=== PATIENT | male | born 1960 | race African-American/Black ===

== ENCOUNTER 2018-05-07 12:03 | Inpatient (IN) | payer OTHER ==
[2018-05-07 17:16] VITALS: BMI 33.3
--- NOTE | 2018-05-07 18:40 | HP ---
COWS - Scale Resting Pulse: 0= ME 80 or Below Sweatin= Chills/Flushing Restless Observation: 1= Difficult to Sit Still Pupil Size: 0= Normal to Room Light Bone or Joint Aches: 1= Mild Discomfort Runny Nose/ Eye Tearin= Runny Nose/Eyes GI Upset > 30mins: 2= Nausea/Diarrhea Tremor Observation: 1= Tremor [place], Not Seen Yawning Observation: 1= 1-2x During Session Anxiety or Irritability: 2=Irritable/Anxious Goose Flesh Skin: 0=Smooth Skin COWS Score: 11 Admission [facility] Chief Complaint: opioid withdrawal symptoms Allergies/Adverse Reactions: Allergies Allergy/AdvReac Type Severity Reaction Status Date / Time No Known Allergies Allergy Verified 05/07/18 17:30 History of Present Illness: 57 yo male wit hx of heroin, cocaine and nicotine dependence is here seeking detox. Utox positive for methadone, reports two days ago he took some from a family member to prevent getting sick. Denies suicidal / homicidal ideation or suicide attempt. PMHX: HTN, asthma, depression, insomnia. Longest period of sobriety 6 years. Last detox [facility] - 02/15/18 Exam Limitations: No Limitations - Ebola screening Have you traveled outside of the country in the last 21 days: No Have you had contact with anyone from an Ebola affected area: No Have you been sick,other than usual withdrawal symptoms: No Do you have a fever: No - Review of Systems Constitutional: Chills, Changes in sleep EENT: reports: Nose Congestion Respiratory: reports: No Symptoms reported Cardiac: reports: No Symptoms Reported GI: reports: Nausea, Poor Fluid Intake, Abdominal cramping : reports: No Symptoms Reported Musculoskeletal: reports: Back Pain, Joint Pain Integumentary: reports: No Symptoms Reported Endocrine: reports: No Symptoms Reported Hematology: reports: No Symptoms Reported Psychiatric: reports: Orientated x3, Depressed Other Systems: Reviewed and Negative Patient History - Patient Medical History Hx Anemia: No Hx Asthma: Yes (Pt is on MDI) Hx Chronic Obstructive Pulmonary Disease (COPD): No Hx Cancer: No Hx Cardiac Disorders: Yes ([place], Pt states he had a stent placed in 2015) Hx Congestive Heart Failure: No Hx Hypertension: Yes (non compliant with meds.) Hx Hypercholesterolemia: Yes Hx Pacemaker: No HX Cerebrovascular Accident: No Hx Seizures: No Hx Dementia: No Hx Diabetes: No Hx Gastrointestinal Disorders: No Hx Genitourinary Disorders: No Hx Sexually Transmitted Disorders: No Hx Renal Disease (ESRD): No Hx Thyroid Disease: No Hx Human Immunodeficiency Virus (HIV): No (last tested on year ago ) Hx Hepatitis C: No Hx Depression: Yes Hx Suicide Attempt: No Hx Bipolar Disorder: No Hx Schizophrenia: No - Patient Surgical History Past Surgical History: Yes Hx Neurologic Surgery: No Hx Cataract Extraction: No Hx Cardiac Surgery: Yes (stent in 2014) Hx Lung Surgery: No Hx Breast Surgery: No Hx Breast Biopsy: No Hx Abdominal Surgery: No Hx Appendectomy: No Hx Cholecystectomy: No Hx Genitourinary Surgery: No Hx Section: No Hx Orthopedic Surgery: No Hx Hysterectomy: No Anesthesia Reaction: No - PPD History Previous Implant?: Yes Documented Results: Negative w/proof Date: 02/21/18 PPD to be Administered?: No - Smoking Cessation Smoking history: Current every day smoker Have you smoked in the past 12 months: Yes Aproximately how many cigarettes per day: 6 Hx Chewing Tobacco Use: No Initiated information on smoking cessation: Yes 'Breaking Loose' booklet given: 05/07/18 - Substance & Tx. History Hx Alcohol Use: Yes Hx Substance Use: Yes Substance Use Type: Alcohol, Heroin Hx Substance Use Treatment: Yes (Last detox [facility] - 02/15/18) - Substances Abused Heroin Route: Inhalation Frequency: Daily Amount used: 1gm Age of first use: 18 Date of Last Use: 05/07/18 Marijuana/Hashish Route: Smoking Frequency: 1-2 times per week Amount used: 3 joints Age of first use: 18 Date of Last Use: 05/06/18 Family Disease History - Family Disease History Family Disease History: Other: Father (, unknown ), Mother (decase, Stroke ) Admission Physical Exam S - Vital Signs Vital Signs: Vital Signs - 24 hr 05/07/18 17:14 Temperature 96.6 F L Pulse Rate 60 Respiratory 20 Rate Blood Pressure 149/101 - Physical General Appearance: Yes: Disheveled, Obese, Sweating, Anxious HEENTM: Yes: EOMI, Hearing grossly Normal, Normal ENT Inspection, Normocephalic , Normal Voice, MANJINDER, Pharynx Normal, Tm's normal Respiratory: Yes: Chest Non-Tender, Lungs Clear, Normal Breath Sounds, No Respiratory Distress, No Accessory Muscle Use Neck: Yes: No masses,lesions,Nodules, Trachea in good position Breast: Yes: Breast Exam Deferred Cardiology: Yes: Regular Rhythm, Regular Rate Abdominal: Yes: Normal Bowel Sounds, Non Tender, Soft, Protuberent Genitourinary: Yes: Within Normal Limits Back: Yes: Normal Inspection Musculoskeletal: Yes: full range of Motion, Gait Steady, Pelvis Stable, Back pain Extremities: Yes: Normal Capillary Refill, Normal Inspection, Normal Range of Motion, Non-Tender Neurological: Yes: field sampling technician II-XII NML intact, Fully Oriented, Alert, Motor Strength 5/5, Depressed Affect Integumentary: Yes: Normal Color, Warm, Diaphoresis Lymphatic: Yes: Within Normal Limits - Diagnostic (1) Asthma Current Visit: Yes Status: Chronic Qualifiers: Asthma severity: unspecified severity Asthma persistence: unspecified Asthma complication type: unspecified Qualified Code(s): J45.909 - Unspecified asthma, uncomplicated (2) Back pain Current Visit: Yes Status: Acute Qualifiers: Back pain location: low back pain Chronicity: acute Back pain laterality : midline Sciatica presence: without sciatica Qualified Code(s): M54.5 - Low back pain (3) Nicotine dependence Current Visit: Yes Status: Acute Qualifiers: Nicotine product type: cigarettes Substance use status: uncomplicated Qualified Code(s): F17.210 - Nicotine dependence, cigarettes, uncomplicated (4) Opioid dependence with withdrawal Current Visit: Yes Status: Acute (5) Hypertension Current Visit: Yes Status: Chronic Qualifiers: Hypertension type: essential hypertension Qualified Code(s): I10 - Essential (primary) hypertension Comment: no medications (6) Obese Current Visit: Yes Status: Chronic Qualifiers: Obesity type: due to excess calories Obesity classification: adult class 2 (BMI 35 - 39.9) Serious obesity comorbidity presence: unspecified whether serious comorbidity present Body mass index: BMI 35.0-35.9 Qualified Code(s) : E66.09 - Other obesity due to excess calories; Z68.35 - Body mass index (BMI) 35.0-35.9, adult; Z68.35 - Body mass index (BMI) 35.0-35.9, adult Cleared for Admission S - Detox or Rehab S Level of Care: Medically Supervised Detox Regimen/Protocol: Methadone BHS Breath Alcohol Content Breath Alcohol Content: 0 Urine Drug Screen - Results Drug Screen Negative: No Urine Drug Screen Results: THC-Marijuana, OPI-Opiates, MTD-Methadone, OXY- Oxycodone
[2018-05-07] MEDS ORDERED: MAG HYDROX/AL HYDROX/SIMETH 30 ML UNIT-DOSE CUP PO PRN (18:46)
[2018-05-07] MEDS ORDERED: P-EPHED 60MG/TRIPROLIDI 2.5MG TABLET PO PRN (18:46)
[2018-05-07] MEDS ORDERED: MAGNESIUM HYDROX 2400MG/30ML ORAL SUSPENSION 30 ML CUP PO PRN (18:46)
[2018-05-07] MEDS ORDERED: LOPERAMIDE HCL 2 MG CAPSULE PO PRN (18:46)
[2018-05-07] MEDS ORDERED: IBUPROFEN 400 MG TABLET (FP) PO PRN (18:46)
[2018-05-07] MEDS ORDERED: MAGNESIUM CITRATE 300 ML BOTTLE PO PRN (18:46)
[2018-05-07] MEDS ORDERED: ACETAMINOPHEN 325 MG TABLET (FP) PO PRN (18:46)
[2018-05-07] MEDS ORDERED: MENTHOL/PHENOL 1 EACH UD MM PRN (18:46)
[2018-05-07] MEDS ORDERED: guaiFENesin/D-METHORPHAN HB 10 ML UNIT-DOSE CUPS PO PRN (18:46)
[2018-05-07] MEDS ORDERED: NICOTINE POLACRILEX 2 MG GUM BC PRN (18:46)
[2018-05-07] MEDS ORDERED: METHADONE HCL 10 MG TABLET (FOR DETOX USE ONLY) PO ONE ×2 (19:15→23:00)
[2018-05-07] MEDS: diazePAM 5 MG TABLET PO PRN (20:29)
[2018-05-07] MEDS ORDERED: cloNIDine HCL 0.1 MG TABLET PO ONE (20:45)
[2018-05-07] MEDS ORDERED: MELATONIN 5 MG TABLETS PO PRN (22:00)
[2018-05-07] MEDS: THIAMINE HCL 100 MG TABLET (FP) PO SCH (22:37)
[2018-05-07 23:23] LABS: URINE APPEARANCE TURBID; URINE BILIRUBIN NEGATIVE (<2.0 mg/dL); URINE COLOR YELLOW; URINE GLUCOSE (UA) NEGATIVE (NEGATIVE); URINE KETONE NEGATIVE (NEGATIVE); URINE LEUK ESTERASE NEGATIVE (NEGATIVE); URINE NITRITE NEGATIVE (NEGATIVE)
[2018-05-07 23:28] LABS: URINE PROTEIN 1+ (NEGATIVE)
[2018-05-07 23:33] LABS: URINE BACTERIA MANY /hpf (NONE SEEN); URINE HYALINE CAST 23 /lpf; URINE MUCUS FEW
[2018-05-08] MEDS ORDERED: CYCLOBENZAPRINE HCL 10 MG TABLET (FP) PO PRN (09:37)
[2018-05-08] MEDS ORDERED: METHADONE HCL 10 MG TABLET (FOR DETOX USE ONLY) PO ONE (10:00)
--- NOTE | 2018-05-08 10:06 | PN ---
S COWS - Scale Resting Pulse: 0= ME 80 or Below Sweatin= Chills/Flushing Restless Observation: 3= Extraneous Movement Pupil Size: 1= Pupils >than Normal Bone or Joint Aches: 2= Severe Diffuse Aches Runny Nose/ Eye Tearin= Runny Nose/Eyes GI Upset > 30mins: 2= Nausea/Diarrhea Tremor Observation of Outstretched Hands: 2= Slight Tremor Visible Yawning Observation: 1= 1-2x During Session Anxiety or Irritability: 2=Irritable/Anxious Goose Flesh Skin: 0=Smooth Skin COWS Score: 16 S Progress Note (SOAP) Subjective: alert,irritable,anxious,tremor,pain in the body and back Objective: 05/08/18 10:03 Vital Signs Temperature 97.3 F L 05/08/18 06:53 Pulse Rate 52 L 05/08/18 06:53 Respiratory Rate 18 05/08/18 06:53 Blood Pressure 171/95 05/08/18 06:53 O2 Sat by Pulse Oximetry (%) ekg nsr 72/min lvh qt 416/455 no chest pain,no sob,no dizziness Laboratory Last Values Urine Color Yellow 05/07/18 Unknown Urine Appearance Turbid 05/07/18 Unknown Urine pH 5.0 (5.0-8.0) 05/07/18 Unknown Ur Specific [place] 1.031 (1.001-1.035) 05/07/18 Unknown Urine Protein 1+ (NEGATIVE) H 05/07/18 Unknown Urine Glucose (UA) Negative (NEGATIVE) 05/07/18 Unknown Urine Ketones Negative (NEGATIVE) 05/07/18 Unknown Urine Blood Negative (NEGATIVE) 05/07/18 Unknown Urine Nitrite Negative (NEGATIVE) 05/07/18 Unknown Urine Bilirubin Negative (<2.0 mg/dL) 05/07/18 Unknown Urine Urobilinogen 2.0 mg/dL (0.2-1.0) 05/07/18 Unknown Ur Leukocyte Esterase Negative (NEGATIVE) 05/07/18 Unknown Urine WBC (Auto) 90 /hpf (3-5) 05/07/18 Unknown Urine RBC (Auto) 3 /hpf (0-3) 05/07/18 Unknown Urine Bacteria Many /hpf (NONE SEEN) 05/07/18 Unknown Hyaline Casts 23 /lpf 05/07/18 Unknown Urine Mucus Few 05/07/18 Unknown labs pending Assessment: 05/08/18 10:06 withdrawal symptom Plan: continue detox,repeat ua
[2018-05-08] MEDS: cloNIDine HCL 0.1 MG TABLET PO SCH ×2 (10:35→22:18)
[2018-05-08] MEDS: PRENATAL VITAMINS W/ FOLIC ACID TABLET (FP) PO SCH (10:35)
[2018-05-08] MEDS: HYDROCHLOROTHIAZIDE 25 MG TABLET (FP) PO SCH (10:35)
[2018-05-08] MEDS: NICOTINE 14 MG/24 HOURS TOPICAL PATCH TD SCH (10:35)
--- NOTE | 2018-05-08 13:12 | EKG ---
Test Reason : Blood Pressure : / mmHG Vent. Rate : 072 BPM Atrial Rate : 072 BPM P-R Int : 126 ms QRS Dur : 092 ms QT Int : 416 ms P-R-T Axes : 052 -13 044 degrees QTc Int : 455 ms SINUS RHYTHM WITH PREMATURE ATRIAL COMPLEXES MODERATE VOLTAGE CRITERIA FOR LVH, MAY BE NORMAL VARIANT BORDERLINE ECG Confirmed by MD BROOKE, CELESTINA ([id number]) on 05/08/2018 1:12:28 PM Referred By: Confirmed By:CELESTINA COX MD
--- NOTE | 2018-05-08 13:24 | CONSULT ---
[facility] Psychiatric Consult - Data Date of interview: 05/08/18 Admission source: [facility] Identifying data: Another admission to [facility] for this 57 y/o AA male seeking detox on for heroin,marihuana,alcohol and cocaine dependence.Patient is ,a father of three,domiciled,unemployed and supported on SSI benefits. Substance Abuse History: Confirmed by patient in this session.Smoking history: Current every day smoker. Have you smoked in the past 12 months: Yes. Aproximately how many cigarettes per day: 6. Hx Chewing Tobacco Use: No. Initiated information on smoking cessation: Yes. 'Breaking Loose' booklet given : 05/07/18. - Substance & Tx. History. Hx Alcohol Use: Yes. Hx Substance Use : Yes. Substance Use Type: Alcohol, Heroin. Hx Substance Use Treatment: Yes ( Last detox [facility] - 02/15/18). - Substances Abused. Heroin. Route: Inhalation. Frequency: Daily. Amount used: 1gm. Age of first use: 18. Date of Last Use: 05/07/18. Marijuana/Hashish. Route: Smoking. Frequency: 1-2 times per week. Amount used: 3 joints. Age of first use: 18. Date of Last Use : 05/06/18 Medical History: Hypertension,bronchial asthma and a history of myocardial infarction (stent placement in 2014). Psychiatric History: No history. Physical/Sexual Abuse/Trauma History: Patient denies. Additional Comment: Urine Drug Screen Results: THC-Marijuana, OPI-Opiates, MTD- Methadone, OXY-Oxycodone.Noted. Mental Status Exam - Mental Status Exam Alert and Oriented to: Time, Place, Person Cognitive Function: Good Patient Appearance: Well Groomed Mood: Withdrawn, Hopeful Affect: Appropriate, Normal Range Patient Behavior: Fatigued, Cooperative Speech Pattern: Clear, Appropriate Voice Loudness: Normal Thought Process: Intact, Goal Oriented Thought Disorder: Not Present Hallucinations: Denies Suicidal Ideation: Denies Homicidal Ideation: Denies Insight/Judgement: Poor Sleep: Poorly, Difficulty falling asleep Appetite: Good Muscle strength/Tone: Normal Gait/Station: Normal Psychiatric Findings - Problem List ([place] 1, 2,3) (1) Opioid dependence with withdrawal Current Visit: Yes Status: Acute (2) Cocaine dependence Current Visit: Yes Status: Acute Qualifiers: Substance use status: uncomplicated Qualified Code(s): F14.20 - Cocaine dependence, uncomplicated (3) Marijuana abuse Current Visit: Yes Status: Acute (4) Nicotine dependence Current Visit: Yes Status: Acute Qualifiers: Nicotine product type: cigarettes Substance use status: uncomplicated Qualified Code(s): F17.210 - Nicotine dependence, cigarettes, uncomplicated (5) Insomnia Current Visit: Yes Status: Acute Qualifiers: Insomnia type: unspecified Qualified Code(s): G47.00 - Insomnia, unspecified - Initial Treatment Plan Initial Treatment Plan: Psychoeducation.Detoxification.Sleep hygiene discussed.Ambien 5 mg po hs prn.Patient is made aware of the potential for parasomnias.Agrees with this careplan.Observation.
[2018-05-08 14:56] LABS: HEMATOCRIT 39.1 % (35.4-49); HEMOGLOBIN 12.8 GM/dL (11.7-16.9); MCH 28.7 pg (25.7-33.7); MCHC 32.8 g/dl (32.0-35.9); MEAN CELL VOLUME 87.5 fl (80-96); MEAN PLT VOLUME 9.9 fl (7.5-11.1); PLATELET COUNT 229 K/MM3 (134-434); RBC 4.47 M/mm3 (4.00-5.60); RDW 15.2 % (11.9-15.9); WHITE BLOOD COUNT 6.8 K/mm3 (4.0-10.0)
[2018-05-08 15:04] LABS: CHLORIDE 105 mmol/L (98-107); POTASSIUM 3.8 mmol/L (3.5-5.1); SODIUM 142 mmol/L (136-145)
[2018-05-08 15:22] LABS: ALBUMIN 3.2 g/dl (3.4-5.0); ALK PHOS 77 U/L (45-117); ANION GAP 10 (8-16); BILIRUBIN,TOTAL 0.3 mg/dL (0.2-1.0); BLOOD UREA NITROGEN 24 mg/dL (7-18); CALCIUM 8.8 mg/dL (8.5-10.1); CO2 27 mmol/L (21-32); CREATININE 1.3 mg/dL (0.7-1.3); GLUCOSE,RANDOM 149 mg/dL (74-106); SGOT/AST 13 U/L (15-37); SGPT/ALT 16 U/L (12-78); TOT PROT 6.7 g/dl (6.4-8.2)
[2018-05-08] MEDS: THIAMINE HCL 100 MG TABLET (FP) PO SCH (22:17)
[2018-05-08] MEDS: diazePAM 5 MG TABLET PO PRN (22:18)
[2018-05-09 09:38] LABS: URINE APPEARANCE CLEAR; URINE BILIRUBIN NEGATIVE (<2.0 mg/dL); URINE COLOR LTYELLOW; URINE GLUCOSE (UA) NEGATIVE (NEGATIVE); URINE KETONE NEGATIVE (NEGATIVE); URINE LEUK ESTERASE NEGATIVE (NEGATIVE); URINE NITRITE NEGATIVE (NEGATIVE); URINE PROTEIN NEGATIVE (NEGATIVE); URINE UROBILINOGEN NEGATIVE mg/dL (0.2-1.0)
[2018-05-09] MEDS ORDERED: METHADONE HCL 5 MG TABLET (FOR DETOX USE ONLY) PO ONE (10:00)
--- NOTE | 2018-05-09 10:06 | PN ---
BHS COWS - Scale Resting Pulse: 0= IN 80 or Below Sweatin= Chills/Flushing Restless Observation: 1= Difficult to Sit Still Pupil Size: 1= Pupils >than Normal Bone or Joint Aches: 2= Severe Diffuse Aches Runny Nose/ Eye Tearin= Runny Nose/Eyes GI Upset > 30mins: 1= Stomach Cramp Tremor Observation of Outstretched Hands: 2= Slight Tremor Visible Yawning Observation: 2= >3x During Session Anxiety or Irritability: 2=Irritable/Anxious Goose Flesh Skin: 0=Smooth Skin COWS Score: 14 BHS Progress Note (SOAP) Subjective: joint pain body ache sweat tremor restlessness anxiety irritable trouble sleep at night Objective: 05/09/18 10:03 Vital Signs Temperature 98.2 F 05/09/18 09:42 Pulse Rate 78 05/09/18 09:42 Respiratory Rate 18 05/09/18 09:42 Blood Pressure 162/92 05/09/18 09:42 O2 Sat by Pulse Oximetry (%) Laboratory Last Values WBC 6.8 K/mm3 (4.0-10.0) 05/08/18 10:10 RBC 4.47 M/mm3 (4.00-5.60) 05/08/18 10:10 Hgb 12.8 GM/dL (11.7-16.9) 05/08/18 10:10 Hct 39.1 % (35.4-49) 05/08/18 10:10 MCV 87.5 fl (80-96) 05/08/18 10:10 MCH 28.7 pg (25.7-33.7) 05/08/18 10:10 MCHC 32.8 g/dl (32.0-35.9) 05/08/18 10:10 RDW 15.2 % (11.9-15.9) 05/08/18 10:10 Plt Count 229 K/MM3 (134-434) D 05/08/18 10:10 MPV 9.9 fl (7.5-11.1) 05/08/18 10:10 Sodium 142 mmol/L (136-145) 05/08/18 10:10 Potassium 3.8 mmol/L (3.5-5.1) 05/08/18 10:10 Chloride 105 mmol/L (98-107) 05/08/18 10:10 Carbon Dioxide 27 mmol/L (21-32) 05/08/18 10:10 Anion Gap 10 (8-16) 05/08/18 10:10 BUN 24 mg/dL (7-18) H 05/08/18 10:10 Creatinine 1.3 mg/dL (0.7-1.3) 05/08/18 10:10 Creat Clearance w eGFR 56.50 (>60) 05/08/18 10:10 Random Glucose 149 mg/dL (74-106) H D 05/08/18 10:10 Calcium 8.8 mg/dL (8.5-10.1) 05/08/18 10:10 Total Bilirubin 0.3 mg/dL (0.2-1.0) 05/08/18 10:10 AST 13 U/L (15-37) L D 05/08/18 10:10 ALT 16 U/L (12-78) D 05/08/18 10:10 Alkaline Phosphatase 77 U/L (45-117) 05/08/18 10:10 Total Protein 6.7 g/dl (6.4-8.2) 05/08/18 10:10 Albumin 3.2 g/dl (3.4-5.0) L 05/08/18 10:10 Urine Color Ltyellow 05/09/18 08:00 Urine Appearance Clear 05/09/18 08:00 Urine pH 6.0 (5.0-8.0) 05/09/18 08:00 Ur Specific [place] 1.017 (1.001-1.035) 05/09/18 08:00 Urine Protein Negative (NEGATIVE) 05/09/18 08:00 Urine Glucose (UA) Negative (NEGATIVE) 05/09/18 08:00 Urine Ketones Negative (NEGATIVE) 05/09/18 08:00 Urine Blood Negative (NEGATIVE) 05/09/18 08:00 Urine Nitrite Negative (NEGATIVE) 05/09/18 08:00 Urine Bilirubin Negative (<2.0 mg/dL) 05/09/18 08:00 Urine Urobilinogen Negative mg/dL (0.2-1.0) 05/09/18 08:00 Ur Leukocyte Esterase Negative (NEGATIVE) 05/09/18 08:00 Urine WBC (Auto) 90 /hpf (3-5) 05/07/18 Unknown Urine RBC (Auto) 3 /hpf (0-3) 05/07/18 Unknown Urine Bacteria Many /hpf (NONE SEEN) 05/07/18 Unknown Hyaline Casts 23 /lpf 05/07/18 Unknown Urine Mucus Few 05/07/18 Unknown lab noted increase oral fluid Assessment: 05/09/18 10:05 withdrawal sx Plan: continue detox increase oral fluid
[2018-05-09] MEDS: cloNIDine HCL 0.1 MG TABLET PO SCH ×2 (10:13→22:27)
[2018-05-09] MEDS: HYDROCHLOROTHIAZIDE 25 MG TABLET (FP) PO SCH (10:13)
[2018-05-09] MEDS: PRENATAL VITAMINS W/ FOLIC ACID TABLET (FP) PO SCH (10:14)
[2018-05-09] MEDS: NICOTINE 14 MG/24 HOURS TOPICAL PATCH TD SCH (10:14)
[2018-05-09] MEDS: amLODIPine BESYLATE 10 MG TABLET (FP) PO SCH (10:15)
[2018-05-09] MEDS: diazePAM 5 MG TABLET PO PRN (22:27)
[2018-05-09] MEDS: THIAMINE HCL 100 MG TABLET (FP) PO SCH (22:27)
--- NOTE | 2018-05-10 09:45 | PN ---
S Progress Note (SOAP) Subjective: body ache sweat tremor gi distress Objective: 05/10/18 09:44 Vital Signs Temperature 97.7 F 05/10/18 09:16 Pulse Rate 62 05/10/18 09:16 Respiratory Rate 18 05/10/18 09:16 Blood Pressure 137/73 05/10/18 09:16 O2 Sat by Pulse Oximetry (%) Laboratory Last Values WBC 6.8 K/mm3 (4.0-10.0) 05/08/18 10:10 RBC 4.47 M/mm3 (4.00-5.60) 05/08/18 10:10 Hgb 12.8 GM/dL (11.7-16.9) 05/08/18 10:10 Hct 39.1 % (35.4-49) 05/08/18 10:10 MCV 87.5 fl (80-96) 05/08/18 10:10 MCH 28.7 pg (25.7-33.7) 05/08/18 10:10 MCHC 32.8 g/dl (32.0-35.9) 05/08/18 10:10 RDW 15.2 % (11.9-15.9) 05/08/18 10:10 Plt Count 229 K/MM3 (134-434) D 05/08/18 10:10 MPV 9.9 fl (7.5-11.1) 05/08/18 10:10 Sodium 142 mmol/L (136-145) 05/08/18 10:10 Potassium 3.8 mmol/L (3.5-5.1) 05/08/18 10:10 Chloride 105 mmol/L (98-107) 05/08/18 10:10 Carbon Dioxide 27 mmol/L (21-32) 05/08/18 10:10 Anion Gap 10 (8-16) 05/08/18 10:10 BUN 24 mg/dL (7-18) H 05/08/18 10:10 Creatinine 1.3 mg/dL (0.7-1.3) 05/08/18 10:10 Creat Clearance w eGFR 56.50 (>60) 05/08/18 10:10 Random Glucose 149 mg/dL (74-106) H D 05/08/18 10:10 Calcium 8.8 mg/dL (8.5-10.1) 05/08/18 10:10 Total Bilirubin 0.3 mg/dL (0.2-1.0) 05/08/18 10:10 AST 13 U/L (15-37) L D 05/08/18 10:10 ALT 16 U/L (12-78) D 05/08/18 10:10 Alkaline Phosphatase 77 U/L (45-117) 05/08/18 10:10 Total Protein 6.7 g/dl (6.4-8.2) 05/08/18 10:10 Albumin 3.2 g/dl (3.4-5.0) L 05/08/18 10:10 Urine Color Ltyellow 05/09/18 08:00 Urine Appearance Clear 05/09/18 08:00 Urine pH 6.0 (5.0-8.0) 05/09/18 08:00 Ur Specific [place] 1.017 (1.001-1.035) 05/09/18 08:00 Urine Protein Negative (NEGATIVE) 05/09/18 08:00 Urine Glucose (UA) Negative (NEGATIVE) 05/09/18 08:00 Urine Ketones Negative (NEGATIVE) 05/09/18 08:00 Urine Blood Negative (NEGATIVE) 05/09/18 08:00 Urine Nitrite Negative (NEGATIVE) 05/09/18 08:00 Urine Bilirubin Negative (<2.0 mg/dL) 05/09/18 08:00 Urine Urobilinogen Negative mg/dL (0.2-1.0) 05/09/18 08:00 Ur Leukocyte Esterase Negative (NEGATIVE) 05/09/18 08:00 Urine WBC (Auto) 90 /hpf (3-5) 05/07/18 Unknown Urine RBC (Auto) 3 /hpf (0-3) 05/07/18 Unknown Urine Bacteria Many /hpf (NONE SEEN) 05/07/18 Unknown Hyaline Casts 23 /lpf 05/07/18 Unknown Urine Mucus Few 05/07/18 Unknown RPR Titer Nonreactive (NONREACTIVE) 05/08/18 10:10 lab noted Assessment: 05/10/18 09:45 withdrawal sx Plan: continue detox
[2018-05-10] MEDS ORDERED: METHADONE HCL 5 MG TABLET (FOR DETOX USE ONLY) PO ONE (10:00)
[2018-05-10] MEDS: cloNIDine HCL 0.1 MG TABLET PO SCH ×2 (10:34→22:23)
[2018-05-10] MEDS: RANITIDINE HCL 150 MG TABLET (FP) PO SCH ×2 (10:34→22:23)
[2018-05-10] MEDS: PRENATAL VITAMINS W/ FOLIC ACID TABLET (FP) PO SCH (10:34)
[2018-05-10] MEDS: amLODIPine BESYLATE 10 MG TABLET (FP) PO SCH (10:34)
[2018-05-10] MEDS: NICOTINE 14 MG/24 HOURS TOPICAL PATCH TD SCH (10:35)
[2018-05-10] MEDS: diazePAM 5 MG TABLET PO PRN (10:35)
[2018-05-10] MEDS: LISINOPRIL 10 MG TABLET (FP) PO SCH ×2 (10:35→22:23)
[2018-05-10] MEDS: HYDROCHLOROTHIAZIDE 25 MG TABLET (FP) PO SCH (10:35)
[2018-05-10] MEDS: THIAMINE HCL 100 MG TABLET (FP) PO SCH (22:23)
--- NOTE | 2018-05-11 09:33 | PN ---
S Progress Note (SOAP) Subjective: alert,interrupted sleep, Objective: 05/11/18 09:32 Vital Signs Temperature 97.5 F L 05/11/18 05:59 Pulse Rate 55 L 05/11/18 05:59 Respiratory Rate 18 05/11/18 05:59 Blood Pressure 132/78 05/11/18 05:59 O2 Sat by Pulse Oximetry (%) Assessment: 05/11/18 09:32 withdrawal symptom Plan: continue detox,discharge in am
[2018-05-11] MEDS ORDERED: METHADONE HCL 10 MG TABLET (FOR DETOX USE ONLY) PO ONE (10:00)
[2018-05-11] MEDS: HYDROCHLOROTHIAZIDE 25 MG TABLET (FP) PO SCH (10:15)
[2018-05-11] MEDS: RANITIDINE HCL 150 MG TABLET (FP) PO SCH ×2 (10:15→22:08)
[2018-05-11] MEDS: PRENATAL VITAMINS W/ FOLIC ACID TABLET (FP) PO SCH (10:15)
[2018-05-11] MEDS: cloNIDine HCL 0.1 MG TABLET PO SCH ×2 (10:15→22:08)
[2018-05-11] MEDS: LISINOPRIL 10 MG TABLET (FP) PO SCH ×2 (10:15→22:08)
[2018-05-11] MEDS: NICOTINE 14 MG/24 HOURS TOPICAL PATCH TD SCH (10:16)
[2018-05-11] MEDS: amLODIPine BESYLATE 10 MG TABLET (FP) PO SCH (10:16)
[2018-05-11] MEDS: THIAMINE HCL 100 MG TABLET (FP) PO SCH (22:08)
[2018-05-12] MEDS ORDERED: METHADONE HCL 5 MG TABLET (FOR DETOX USE ONLY) PO ONE (06:00)
--- NOTE | 2018-05-12 08:33 | PN ---
S Progress Note (SOAP) Subjective: ALERT,NO COMPLAINT Objective: 05/12/18 08:31 Vital Signs Temperature 96.4 F L 05/12/18 06:20 Pulse Rate 71 05/12/18 06:20 Respiratory Rate 18 05/12/18 06:20 Blood Pressure 117/66 05/12/18 06:20 O2 Sat by Pulse Oximetry (%) Assessment: 05/12/18 08:32 DETOX COMPLETED,NO WITHDRAWAL SYMPTOM Plan: DISCHARGE TODAY,FOLLOW UP WITH AFTER CARE PROGRAM ARRANGEMENT
--- NOTE | 2018-05-12 08:39 | DS ---
[facility] Detox Discharge Summary Admission Date: 05/07/18 Discharge Date: 05/12/18 - History Present History: Opioid Dependence Additional Comments: FOLLOW UP WITH AFTER CARE PROGRAM ARRANGEMENT,ADVISE DIET LOW SALT AND NO CONCENTRATED SWEET,FOLLOW UP WITH PCP FOR MEDICAL PROBLEM Pertinent Past History: ESSENTIAL HYPERTENSION ASTHMA BACK PAIN NICOTINE DEPENDENCE - Physical Exam Results Vital Signs: Vital Signs Temperature 96.4 F L 05/12/18 06:20 Pulse Rate 71 05/12/18 06:20 Respiratory Rate 18 05/12/18 06:20 Blood Pressure 117/66 05/12/18 06:20 O2 Sat by Pulse Oximetry (%) Pertinent Admission Physical Exam Findings: WITHDRAWAL SIGNS AND SYMPTOM Laboratory Last Values WBC 6.8 K/mm3 (4.0-10.0) 05/08/18 10:10 RBC 4.47 M/mm3 (4.00-5.60) 05/08/18 10:10 Hgb 12.8 GM/dL (11.7-16.9) 05/08/18 10:10 Hct 39.1 % (35.4-49) 05/08/18 10:10 MCV 87.5 fl (80-96) 05/08/18 10:10 MCH 28.7 pg (25.7-33.7) 05/08/18 10:10 MCHC 32.8 g/dl (32.0-35.9) 05/08/18 10:10 RDW 15.2 % (11.9-15.9) 05/08/18 10:10 Plt Count 229 K/MM3 (134-434) D 05/08/18 10:10 MPV 9.9 fl (7.5-11.1) 05/08/18 10:10 Sodium 142 mmol/L (136-145) 05/08/18 10:10 Potassium 3.8 mmol/L (3.5-5.1) 05/08/18 10:10 Chloride 105 mmol/L (98-107) 05/08/18 10:10 Carbon Dioxide 27 mmol/L (21-32) 05/08/18 10:10 Anion Gap 10 (8-16) 05/08/18 10:10 BUN 24 mg/dL (7-18) H 05/08/18 10:10 Creatinine 1.3 mg/dL (0.7-1.3) 05/08/18 10:10 Creat Clearance w eGFR 56.50 (>60) 05/08/18 10:10 Random Glucose 149 mg/dL (74-106) H D 05/08/18 10:10 Calcium 8.8 mg/dL (8.5-10.1) 05/08/18 10:10 Total Bilirubin 0.3 mg/dL (0.2-1.0) 05/08/18 10:10 AST 13 U/L (15-37) L D 05/08/18 10:10 ALT 16 U/L (12-78) D 05/08/18 10:10 Alkaline Phosphatase 77 U/L (45-117) 05/08/18 10:10 Total Protein 6.7 g/dl (6.4-8.2) 05/08/18 10:10 Albumin 3.2 g/dl (3.4-5.0) L 05/08/18 10:10 Urine Color Ltyellow 05/09/18 08:00 Urine Appearance Clear 05/09/18 08:00 Urine pH 6.0 (5.0-8.0) 05/09/18 08:00 Ur Specific [place] 1.017 (1.001-1.035) 05/09/18 08:00 Urine Protein Negative (NEGATIVE) 05/09/18 08:00 Urine Glucose (UA) Negative (NEGATIVE) 05/09/18 08:00 Urine Ketones Negative (NEGATIVE) 05/09/18 08:00 Urine Blood Negative (NEGATIVE) 05/09/18 08:00 Urine Nitrite Negative (NEGATIVE) 05/09/18 08:00 Urine Bilirubin Negative (<2.0 mg/dL) 05/09/18 08:00 Urine Urobilinogen Negative mg/dL (0.2-1.0) 05/09/18 08:00 Ur Leukocyte Esterase Negative (NEGATIVE) 05/09/18 08:00 Urine WBC (Auto) 90 /hpf (3-5) 05/07/18 Unknown Urine RBC (Auto) 3 /hpf (0-3) 05/07/18 Unknown Urine Bacteria Many /hpf (NONE SEEN) 05/07/18 Unknown Hyaline Casts 23 /lpf 05/07/18 Unknown Urine Mucus Few 05/07/18 Unknown RPR Titer Nonreactive (NONREACTIVE) 07/03/18 10:10 Vital Signs Temperature 96.4 F L 05/12/18 06:20 Pulse Rate 71 05/12/18 06:20 Respiratory Rate 18 05/12/18 06:20 Blood Pressure 117/66 05/12/18 06:20 O2 Sat by Pulse Oximetry (%) - Treatment Hospital Course: Detox Protocol Followed, Detoxed Safely, Responded well, Discharged Condition Good, Rehab Referral Accepted Patient has Accepted a Rehab Referral to: [facility] - Medication Discharge Medications: Ambulatory Orders Amlodipine Besylate [Norvasc -] 10 mg PO DAILY #30 tablet 05/11/18 Hydrochlorothiazide [Hctz -] 25 mg PO DAILY #30 tablet 05/11/18 Lisinopril [Prinivil] 10 mg PO BID #60 tablet 05/11/18 Ranitidine [Zantac -] 150 mg PO BID #20 tablet 05/11/18 Ranitidine [Zantac -] 150 mg PO BID #20 tablet 05/11/18 - Diagnosis (1) Opioid dependence with withdrawal Current Visit: Yes Status: Acute (2) Back pain Current Visit: Yes Status: Acute Qualifiers: Back pain location: low back pain Chronicity: acute Back pain laterality : midline Sciatica presence: without sciatica Qualified Code(s): M54.5 - Low back pain (3) Nicotine dependence Current Visit: Yes Status: Acute Qualifiers: Nicotine product type: cigarettes Substance use status: uncomplicated Qualified Code(s): F17.210 - Nicotine dependence, cigarettes, uncomplicated (4) Asthma Current Visit: Yes Status: Chronic Qualifiers: Asthma severity: unspecified severity Asthma persistence: unspecified Asthma complication type: unspecified Qualified Code(s): J45.909 - Unspecified asthma, uncomplicated (5) Hypertension Current Visit: Yes Status: Chronic Qualifiers: Hypertension type: essential hypertension Qualified Code(s): I10 - Essential (primary) hypertension - AMA Did Patient Leave Against Medical Advice: No
[2018-05-12 09:07] VITALS: BP 134/85; PULSE 65; TEMP 98.4
[2018-05-12] MEDS: LISINOPRIL 10 MG TABLET (FP) PO SCH (09:14)
[2018-05-12] MEDS: HYDROCHLOROTHIAZIDE 25 MG TABLET (FP) PO SCH (09:14)
[2018-05-12] MEDS: RANITIDINE HCL 150 MG TABLET (FP) PO SCH (09:14)
[2018-05-12] MEDS: cloNIDine HCL 0.1 MG TABLET PO SCH (09:14)
[2018-05-12] MEDS: amLODIPine BESYLATE 10 MG TABLET (FP) PO SCH (09:14)
[2018-05-12] MEDS: PRENATAL VITAMINS W/ FOLIC ACID TABLET (FP) PO SCH (09:14)
== END 2018-05-12 09:18 | disposition home or self-care (01) | DRG 773 ==
LOC: YASAS 12:03 → Y6N 17:40
PROVIDERS: ADMIT Surgery; ATTEND Surgery
PROC: HZ2ZZZZ Detoxification Services for Substance Abuse Treatment (ICD-10-PCS; principal; 2018-05-07)
DX: F11.23 Opioid dependence with withdrawal (principal); F14.20 Cocaine dependence, uncomplicated; F12.10 Cannabis abuse, uncomplicated; F17.210 Nicotine dependence, cigarettes, uncomplicated; F32.9 Major depressive disorder, single episode, unspecified; I25.10 Atherosclerotic heart disease of native coronary artery without angina pectoris; I10 Essential (primary) hypertension; Z95.5 Presence of coronary angioplasty implant and graft; M54.5 Low back pain; G47.00 Insomnia, unspecified; E66.09 Other obesity due to excess calories; Z68.33 Body mass index [BMI] 33.0-33.9, adult; I25.2 Old myocardial infarction
CPT/HCPCS: 36415; 80053; 81003; 81015; 85027; 86593; 93005; 93010; J0735

== ENCOUNTER 2023-02-09 10:41 | Inpatient (IN) | payer OTHER ==
[2023-02-09 11:40] VITALS: BMI 25.8
[2023-02-09] MEDS ORDERED: BENZONATATE 200 MG CAPSULE PO PRN (12:00)
[2023-02-09] MEDS ORDERED: BENZOCAINE/MENTHOL (CHLORASEPTIC ) LOZENGE MM PRN (12:00)
[2023-02-09] MEDS ORDERED: LOPERAMIDE HCL 2 MG CAPSULE PO PRN (12:00)
[2023-02-09] MEDS ORDERED: NALOXONE HCL 0.4 MG/ML VIAL IM PRN (12:00)
[2023-02-09] MEDS ORDERED: guaiFENesin 600 MG TABLET.ER (FP) PO PRN (12:00)
[2023-02-09] MEDS ORDERED: NALOXONE HCL (KLOXXADO) 8 MG SPRAY NS PRN (12:00)
[2023-02-09] MEDS ORDERED: ACETAMINOPHEN 325 MG TABLET (FP) PO PRN (12:00)
[2023-02-09] MEDS ORDERED: amLODIPine BESYLATE 10 MG TABLET (FP) PO SCH ×2 (15:30→16:07)
[2023-02-09] MEDS ORDERED: cloNIDine HCL 0.1 MG TABLET PO ONE (16:02)
[2023-02-09] MEDS ORDERED: TUBERCULIN PPD 5 TU/0.1ML VIAL ID ONE (17:06)
[2023-02-09 17:44] LABS: HEMATOCRIT 40.3 % (35.4-49); HEMOGLOBIN 13.5 GM/dL (11.7-16.9); MCH 29.3 pg (25.7-33.7); MCHC 33.6 g/dl (32.0-35.9); MEAN CELL VOLUME 87.2 fl (80-96); MEAN PLT VOLUME 9.4 fl (7.5-11.1); PLATELET COUNT 192 10^3/uL (134-434); RBC 4.62 M/mm3 (4.00-5.60); WHITE BLOOD COUNT 6.4 K/mm3 (4.0-10.0)
[2023-02-09 17:57] LABS: ALBUMIN 3.8 g/dl (3.4-5.0); CALCIUM 9.8 mg/dL (8.5-10.1)
[2023-02-09 17:58] LABS: BLOOD UREA NITROGEN 17.8 mg/dL (7-18)
[2023-02-09 18:01] LABS: CREATININE 1.3 mg/dL (0.55-1.3)
[2023-02-09 18:02] LABS: BILIRUBIN,TOTAL 0.8 mg/dL (0.2-1); TOT PROT 7.4 g/dl (6.4-8.2)
[2023-02-09] MEDS: MELATONIN 5 MG TABLETS PO SCH (21:45)
[2023-02-09] MEDS: THIAMINE HCL 100 MG TABLET (FP) PO SCH (21:45)
[2023-02-09] MEDS: LISINOPRIL 10 MG TABLET PO SCH (21:45)
[2023-02-09] MEDS: MAGNESIUM HYDROX 2400MG/30ML ORAL SUSPENSION 30 ML CUP PO PRN (21:46)
[2023-02-10] MEDS ORDERED: methaDONE HCL 10 MG TABLET PO SCH (06:00)
[2023-02-10] MEDS: hydrOXYzine PAMOATE 25 MG CAPSULE (FP) PO PRN ×2 (06:31→21:32)
[2023-02-10] MEDS: methaDONE 40 MG, methaDONE 20 MG PO SCH (06:32)
[2023-02-10] MEDS: amLODIPine BESYLATE 10 MG TABLET (FP) PO SCH (07:03)
[2023-02-10] MEDS: LISINOPRIL 10 MG TABLET PO SCH ×3 (08:46→21:32)
[2023-02-10] MEDS: PRENATAL VITAMINS W/ FOLIC ACID TABLET (FP) PO SCH (10:52)
[2023-02-10] MEDS: MELATONIN 5 MG TABLETS PO SCH (21:32)
[2023-02-10] MEDS: THIAMINE HCL 100 MG TABLET (FP) PO SCH (21:32)
[2023-02-11] MEDS: hydrOXYzine PAMOATE 25 MG CAPSULE (FP) PO PRN (06:22)
[2023-02-11] MEDS: methaDONE 40 MG, methaDONE 20 MG PO SCH (06:22)
[2023-02-11] MEDS: cloNIDine HCL 0.1 MG TABLET PO PRN (06:23)
[2023-02-11] MEDS: amLODIPine BESYLATE 10 MG TABLET (FP) PO SCH (06:23)
[2023-02-11] MEDS: POLYETHYLENE GLYCOL (HEALTHYLAX) 3350 17 GM PACKET PO PRN (06:25)
[2023-02-11] MEDS: LISINOPRIL 10 MG TABLET PO SCH ×2 (10:27→21:11)
[2023-02-11] MEDS: PRENATAL VITAMINS W/ FOLIC ACID TABLET (FP) PO SCH (10:27)
[2023-02-11] MEDS: NICOTINE 10 MG CARTRIDGE (INHALER) IH PRN (15:01)
[2023-02-11 19:36] LABS: EPI CELLS 7 /uL (0-25.1); HYALINE CASTS 4 /uL (0-3.1); URINE APPEARANCE CLEAR; URINE BACTERIA 8 /uL (0-1359); URINE BILIRUBIN NEGATIVE (NEGATIVE); URINE COLOR YELLOW; URINE GLUCOSE (UA) NEGATIVE (NEGATIVE); URINE KETONE NEGATIVE (NEGATIVE); URINE LEUK ESTERASE NEGATIVE (NEGATIVE); URINE NITRITE NEGATIVE (NEGATIVE); URINE PROTEIN NEGATIVE (NEGATIVE); URINE RBC 12 /uL (0-23.9); URINE UROBILINOGEN 0.2 mg/dL (0.2-1.0); URINE WBC 10 /uL (0-25.8)
[2023-02-11] MEDS: MELATONIN 5 MG TABLETS PO SCH (21:11)
[2023-02-11] MEDS: THIAMINE HCL 100 MG TABLET (FP) PO SCH (21:11)
[2023-02-11] MEDS: traZODone HCL 50 MG TABLET (FP) PO SCH (21:11)
[2023-02-12] MEDS: methaDONE 40 MG, methaDONE 20 MG PO SCH (06:47)
[2023-02-12] MEDS: cloNIDine HCL 0.1 MG TABLET PO PRN (06:47)
[2023-02-12] MEDS: amLODIPine BESYLATE 10 MG TABLET (FP) PO SCH (06:48)
[2023-02-12] MEDS: PRENATAL VITAMINS W/ FOLIC ACID TABLET (FP) PO SCH (11:39)
[2023-02-12] MEDS: LISINOPRIL 10 MG TABLET PO SCH ×2 (11:39→21:22)
[2023-02-12] MEDS: NICOTINE 10 MG CARTRIDGE (INHALER) IH PRN ×2 (11:41→21:23)
[2023-02-12] MEDS: traZODone HCL 50 MG TABLET (FP) PO SCH (21:22)
[2023-02-12] MEDS: MELATONIN 5 MG TABLETS PO SCH (21:22)
[2023-02-12] MEDS: THIAMINE HCL 100 MG TABLET (FP) PO SCH (21:22)
[2023-02-13] MEDS: cloNIDine HCL 0.1 MG TABLET PO PRN (06:12)
[2023-02-13] MEDS: amLODIPine BESYLATE 10 MG TABLET (FP) PO SCH (06:12)
[2023-02-13] MEDS: methaDONE 40 MG, methaDONE 20 MG PO SCH (06:12)
[2023-02-13] MEDS: hydrOXYzine PAMOATE 25 MG CAPSULE (FP) PO PRN ×2 (07:54→21:15)
[2023-02-13] MEDS: LISINOPRIL 10 MG TABLET PO SCH ×2 (10:08→17:33)
[2023-02-13] MEDS: PRENATAL VITAMINS W/ FOLIC ACID TABLET (FP) PO SCH (10:08)
[2023-02-13] MEDS ORDERED: LISINOPRIL 20 MG TABLET PO SCH (11:00)
[2023-02-13] MEDS ORDERED: LISINOPRIL 10 MG TABLET PO ONE (13:15)
[2023-02-13] MEDS: NICOTINE 10 MG CARTRIDGE (INHALER) IH PRN (14:38)
[2023-02-13] MEDS: MELATONIN 5 MG TABLETS PO SCH (21:14)
[2023-02-13] MEDS: DOCUSATE SODIUM 100 MG CAPSULE (FP) PO PRN (21:14)
[2023-02-13] MEDS: traZODone HCL 50 MG TABLET (FP) PO SCH (21:14)
[2023-02-13] MEDS: THIAMINE HCL 100 MG TABLET (FP) PO SCH (21:14)
[2023-02-14] MEDS: methaDONE 40 MG, methaDONE 20 MG PO SCH (06:08)
[2023-02-14] MEDS: cloNIDine HCL 0.1 MG TABLET PO PRN (06:09)
[2023-02-14] MEDS: amLODIPine BESYLATE 10 MG TABLET (FP) PO SCH (06:09)
[2023-02-14] MEDS: PRENATAL VITAMINS W/ FOLIC ACID TABLET (FP) PO SCH (10:09)
[2023-02-14] MEDS: LISINOPRIL 20 MG TABLET PO SCH (10:09)
[2023-02-14] MEDS: LISINOPRIL 10 MG TABLET PO SCH (18:18)
[2023-02-14] MEDS: MELATONIN 5 MG TABLETS PO SCH (21:09)
[2023-02-14] MEDS: THIAMINE HCL 100 MG TABLET (FP) PO SCH (21:09)
[2023-02-14] MEDS: DOCUSATE SODIUM 100 MG CAPSULE (FP) PO PRN (21:09)
[2023-02-14] MEDS: traZODone HCL 100 MG TABLET (FP) PO SCH (21:10)
[2023-02-15] MEDS: cloNIDine HCL 0.1 MG TABLET PO PRN (05:57)
[2023-02-15] MEDS: methaDONE 40 MG, methaDONE 20 MG PO SCH (05:57)
[2023-02-15] MEDS: hydrOXYzine PAMOATE 25 MG CAPSULE (FP) PO PRN ×2 (05:58→21:18)
[2023-02-15] MEDS: amLODIPine BESYLATE 10 MG TABLET (FP) PO SCH (06:00)
[2023-02-15] MEDS: PRENATAL VITAMINS W/ FOLIC ACID TABLET (FP) PO SCH (10:08)
[2023-02-15] MEDS: LISINOPRIL 20 MG TABLET PO SCH (10:09)
[2023-02-15] MEDS: NICOTINE 10 MG CARTRIDGE (INHALER) IH PRN (12:45)
[2023-02-15] MEDS: LISINOPRIL 10 MG TABLET PO SCH (17:49)
[2023-02-15] MEDS: POLYETHYLENE GLYCOL (HEALTHYLAX) 3350 17 GM PACKET PO PRN (18:53)
[2023-02-15] MEDS: THIAMINE HCL 100 MG TABLET (FP) PO SCH (21:18)
[2023-02-15] MEDS: traZODone HCL 100 MG TABLET (FP) PO SCH (21:18)
[2023-02-15] MEDS: MELATONIN 5 MG TABLETS PO SCH (21:18)
[2023-02-16] MEDS: methaDONE 40 MG, methaDONE 20 MG PO SCH (06:24)
[2023-02-16] MEDS: amLODIPine BESYLATE 10 MG TABLET (FP) PO SCH (06:24)
[2023-02-16] MEDS: LISINOPRIL 20 MG TABLET PO SCH (09:47)
[2023-02-16] MEDS: PRENATAL VITAMINS W/ FOLIC ACID TABLET (FP) PO SCH (09:47)
[2023-02-16] MEDS: LISINOPRIL 10 MG TABLET PO SCH (18:28)
[2023-02-16] MEDS: traZODone HCL 100 MG TABLET (FP) PO SCH (21:05)
[2023-02-16] MEDS: MELATONIN 5 MG TABLETS PO SCH (21:05)
[2023-02-16] MEDS: POLYETHYLENE GLYCOL (HEALTHYLAX) 3350 17 GM PACKET PO PRN (21:05)
[2023-02-16] MEDS: THIAMINE HCL 100 MG TABLET (FP) PO SCH (21:05)
[2023-02-17] MEDS: methaDONE 40 MG, methaDONE 20 MG PO SCH (06:04)
[2023-02-17] MEDS: hydrOXYzine PAMOATE 25 MG CAPSULE (FP) PO PRN (06:05)
[2023-02-17] MEDS: amLODIPine BESYLATE 10 MG TABLET (FP) PO SCH (06:05)
[2023-02-17] MEDS: NICOTINE 10 MG CARTRIDGE (INHALER) IH PRN (06:36)
[2023-02-17] MEDS: PRENATAL VITAMINS W/ FOLIC ACID TABLET (FP) PO SCH (10:59)
[2023-02-17] MEDS: LISINOPRIL 20 MG TABLET PO SCH (11:00)
[2023-02-17] MEDS: LISINOPRIL 10 MG TABLET PO SCH (18:50)
[2023-02-17] MEDS: traZODone HCL 100 MG TABLET (FP) PO SCH (21:14)
[2023-02-17] MEDS: MELATONIN 5 MG TABLETS PO SCH (21:14)
[2023-02-17] MEDS: MIRTAZAPINE 15 MG TABLET (FP) PO SCH (21:14)
[2023-02-17] MEDS: THIAMINE HCL 100 MG TABLET (FP) PO SCH (21:14)
[2023-02-17] MEDS: POLYETHYLENE GLYCOL (HEALTHYLAX) 3350 17 GM PACKET PO PRN (21:15)
[2023-02-18] MEDS: cloNIDine HCL 0.1 MG TABLET PO PRN (06:21)
[2023-02-18] MEDS: amLODIPine BESYLATE 10 MG TABLET (FP) PO SCH (06:21)
[2023-02-18] MEDS: hydrOXYzine PAMOATE 25 MG CAPSULE (FP) PO PRN (06:21)
[2023-02-18] MEDS: methaDONE 40 MG, methaDONE 20 MG PO SCH (06:22)
[2023-02-18] MEDS: NICOTINE 10 MG CARTRIDGE (INHALER) IH PRN (08:56)
[2023-02-18] MEDS: PRENATAL VITAMINS W/ FOLIC ACID TABLET (FP) PO SCH (09:50)
[2023-02-18] MEDS: LISINOPRIL 20 MG TABLET PO SCH (09:51)
[2023-02-18] MEDS: LISINOPRIL 10 MG TABLET PO SCH (17:37)
[2023-02-18] MEDS: THIAMINE HCL 100 MG TABLET (FP) PO SCH (21:20)
[2023-02-18] MEDS: MELATONIN 5 MG TABLETS PO SCH (21:20)
[2023-02-18] MEDS: traZODone HCL 100 MG TABLET (FP) PO SCH (21:21)
[2023-02-18] MEDS: MIRTAZAPINE 15 MG TABLET (FP) PO SCH (21:21)
[2023-02-19] MEDS: amLODIPine BESYLATE 10 MG TABLET (FP) PO SCH (06:06)
[2023-02-19] MEDS: cloNIDine HCL 0.1 MG TABLET PO PRN (06:06)
[2023-02-19] MEDS: methaDONE 40 MG, methaDONE 20 MG PO SCH (06:06)
[2023-02-19] MEDS: hydrOXYzine PAMOATE 25 MG CAPSULE (FP) PO PRN (06:07)
[2023-02-19] MEDS: NICOTINE 10 MG CARTRIDGE (INHALER) IH PRN (06:07)
[2023-02-19] MEDS: LISINOPRIL 20 MG TABLET PO SCH (10:02)
[2023-02-19] MEDS: MAGNESIUM HYDROX 2400MG/30ML ORAL SUSPENSION 30 ML CUP PO PRN (10:02)
[2023-02-19] MEDS: PRENATAL VITAMINS W/ FOLIC ACID TABLET (FP) PO SCH (10:02)
[2023-02-19] MEDS: LISINOPRIL 10 MG TABLET PO SCH (17:28)
[2023-02-19] MEDS: MELATONIN 5 MG TABLETS PO SCH (21:07)
[2023-02-19] MEDS: MIRTAZAPINE 15 MG TABLET (FP) PO SCH (21:07)
[2023-02-19] MEDS: DOCUSATE SODIUM 100 MG CAPSULE (FP) PO PRN (21:07)
[2023-02-19] MEDS: traZODone HCL 100 MG TABLET (FP) PO SCH (21:07)
[2023-02-19] MEDS: THIAMINE HCL 100 MG TABLET (FP) PO SCH (21:07)
[2023-02-20] MEDS: amLODIPine BESYLATE 10 MG TABLET (FP) PO SCH (06:53)
[2023-02-20] MEDS: methaDONE 40 MG, methaDONE 20 MG PO SCH (06:53)
[2023-02-20] MEDS: PRENATAL VITAMINS W/ FOLIC ACID TABLET (FP) PO SCH (09:48)
[2023-02-20] MEDS: NICOTINE 10 MG CARTRIDGE (INHALER) IH PRN (09:48)
[2023-02-20] MEDS: LISINOPRIL 20 MG TABLET PO SCH (09:48)
[2023-02-20] MEDS: NICOTINE 7 MG/24 HOURS TOPICAL PATCH TD SCH (15:57)
[2023-02-20] MEDS: LISINOPRIL 10 MG TABLET PO SCH (18:05)
[2023-02-20] MEDS: VITAMINS A AND D TOPICAL OINTMENT 60 GM TUBE TP SCH (18:05)
[2023-02-20] MEDS: cloNIDine HCL 0.1 MG TABLET PO PRN (21:08)
[2023-02-20] MEDS: MELATONIN 5 MG TABLETS PO SCH (21:08)
[2023-02-20] MEDS: DOCUSATE SODIUM 100 MG CAPSULE (FP) PO PRN (21:08)
[2023-02-20] MEDS: hydrOXYzine PAMOATE 25 MG CAPSULE (FP) PO PRN (21:08)
[2023-02-20] MEDS: MIRTAZAPINE 15 MG TABLET (FP) PO SCH (21:08)
[2023-02-20] MEDS: THIAMINE HCL 100 MG TABLET (FP) PO SCH (21:08)
[2023-02-20] MEDS: traZODone HCL 100 MG TABLET (FP) PO SCH (21:08)
[2023-02-21] MEDS: VITAMINS A AND D TOPICAL OINTMENT 60 GM TUBE TP SCH ×4 (01:28→18:55)
[2023-02-21] MEDS: methaDONE 40 MG, methaDONE 20 MG PO SCH (05:52)
[2023-02-21] MEDS: NICOTINE 10 MG CARTRIDGE (INHALER) IH PRN (06:30)
[2023-02-21] MEDS: amLODIPine BESYLATE 10 MG TABLET (FP) PO SCH (07:26)
[2023-02-21] MEDS: NICOTINE 7 MG/24 HOURS TOPICAL PATCH TD SCH (10:10)
[2023-02-21] MEDS: LISINOPRIL 20 MG TABLET PO SCH (10:10)
[2023-02-21] MEDS: PRENATAL VITAMINS W/ FOLIC ACID TABLET (FP) PO SCH (10:10)
[2023-02-21] MEDS: LISINOPRIL 10 MG TABLET PO SCH (19:00)
[2023-02-21] MEDS: MAGNESIUM HYDROX 2400MG/30ML ORAL SUSPENSION 30 ML CUP PO PRN (19:02)
[2023-02-21] MEDS: MIRTAZAPINE 15 MG TABLET (FP) PO SCH (21:06)
[2023-02-21] MEDS: THIAMINE HCL 100 MG TABLET (FP) PO SCH (21:06)
[2023-02-21] MEDS: MELATONIN 5 MG TABLETS PO SCH (21:06)
[2023-02-21] MEDS: traZODone HCL 100 MG TABLET (FP) PO SCH (21:06)
[2023-02-22] MEDS: VITAMINS A AND D TOPICAL OINTMENT 60 GM TUBE TP SCH ×4 (01:41→17:19)
[2023-02-22] MEDS: amLODIPine BESYLATE 10 MG TABLET (FP) PO SCH (06:05)
[2023-02-22] MEDS: hydrOXYzine PAMOATE 25 MG CAPSULE (FP) PO PRN (06:05)
[2023-02-22] MEDS: cloNIDine HCL 0.1 MG TABLET PO PRN (06:05)
[2023-02-22] MEDS: methaDONE 40 MG, methaDONE 20 MG PO SCH (06:05)
[2023-02-22] MEDS: PRENATAL VITAMINS W/ FOLIC ACID TABLET (FP) PO SCH (09:40)
[2023-02-22] MEDS: NICOTINE 7 MG/24 HOURS TOPICAL PATCH TD SCH (09:40)
[2023-02-22] MEDS: LISINOPRIL 20 MG TABLET PO SCH (09:40)
[2023-02-22] MEDS: NICOTINE 10 MG CARTRIDGE (INHALER) IH PRN (09:40)
[2023-02-22] MEDS: LISINOPRIL 10 MG TABLET PO SCH (17:14)
[2023-02-22] MEDS: THIAMINE HCL 100 MG TABLET (FP) PO SCH (21:32)
[2023-02-22] MEDS: traZODone HCL 100 MG TABLET (FP) PO SCH (21:32)
[2023-02-22] MEDS: MELATONIN 5 MG TABLETS PO SCH (21:32)
[2023-02-22] MEDS: MIRTAZAPINE 15 MG TABLET (FP) PO SCH (21:33)
[2023-02-23] MEDS: VITAMINS A AND D TOPICAL OINTMENT 60 GM TUBE TP SCH ×4 (00:25→22:09)
[2023-02-23] MEDS: amLODIPine BESYLATE 10 MG TABLET (FP) PO SCH (06:09)
[2023-02-23] MEDS: cloNIDine HCL 0.1 MG TABLET PO PRN (06:09)
[2023-02-23] MEDS: methaDONE 40 MG, methaDONE 20 MG PO SCH (06:09)
[2023-02-23] MEDS: DOCUSATE SODIUM 100 MG CAPSULE (FP) PO PRN (06:10)
[2023-02-23] MEDS: hydrOXYzine PAMOATE 25 MG CAPSULE (FP) PO PRN ×2 (06:10→19:29)
[2023-02-23] MEDS: NICOTINE 10 MG CARTRIDGE (INHALER) IH PRN ×2 (06:11→16:14)
[2023-02-23] MEDS ORDERED: SENNOSIDES 8.6MG TABLET (FP) PO PRN (09:23)
[2023-02-23] MEDS: NICOTINE 7 MG/24 HOURS TOPICAL PATCH TD SCH (09:59)
[2023-02-23] MEDS: PRENATAL VITAMINS W/ FOLIC ACID TABLET (FP) PO SCH (09:59)
[2023-02-23] MEDS: LISINOPRIL 20 MG TABLET PO SCH (09:59)
[2023-02-23] MEDS: LISINOPRIL 10 MG TABLET PO SCH (18:21)
[2023-02-23] MEDS: IBUPROFEN 600 MG TABLET (FP) PO PRN (19:29)
[2023-02-23] MEDS ORDERED: TRIAMCINOLONE ACET 0.1% OINT 15 GM TUBE TP SCH (22:00)
[2023-02-23] MEDS: MELATONIN 5 MG TABLETS PO SCH (22:07)
[2023-02-23] MEDS: traZODone HCL 100 MG TABLET (FP) PO SCH (22:07)
[2023-02-23] MEDS: THIAMINE HCL 100 MG TABLET (FP) PO SCH (22:07)
[2023-02-23] MEDS: MIRTAZAPINE 15 MG TABLET (FP) PO SCH (22:07)
[2023-02-23] MEDS: CEPHALEXIN MONOHYDRATE 500 MG CAPSULE (UD) PO SCH (22:08)
[2023-02-23] MEDS: NYSTATIN/TRIAMCINOLONE TOPICAL OINTMENT 15 GM TUBE TP SCH (23:58)
[2023-02-24] MEDS: methaDONE 40 MG, methaDONE 20 MG PO SCH (06:15)
[2023-02-24] MEDS: NICOTINE 10 MG CARTRIDGE (INHALER) IH PRN ×2 (06:15→21:29)
[2023-02-24] MEDS: DOCUSATE SODIUM 100 MG CAPSULE (FP) PO PRN (06:16)
[2023-02-24] MEDS: IBUPROFEN 400 MG TABLET (FP) PO PRN (06:16)
[2023-02-24] MEDS: cloNIDine HCL 0.1 MG TABLET PO PRN (06:16)
[2023-02-24] MEDS: amLODIPine BESYLATE 10 MG TABLET (FP) PO SCH (06:16)
[2023-02-24] MEDS ORDERED: AMMONIUM LACTATE 12% LOTION 225 GM BOTTLE TP PRN (09:01)
[2023-02-24] MEDS ORDERED: SALICYLIC ACID 1 APPLIC BOTTLE TP PRN (09:16)
[2023-02-24] MEDS: PRENATAL VITAMINS W/ FOLIC ACID TABLET (FP) PO SCH (10:17)
[2023-02-24] MEDS: CEPHALEXIN MONOHYDRATE 500 MG CAPSULE (UD) PO SCH ×2 (10:17→21:28)
[2023-02-24] MEDS: NYSTATIN/TRIAMCINOLONE TOPICAL OINTMENT 15 GM TUBE TP SCH ×2 (10:17→21:27)
[2023-02-24] MEDS: LISINOPRIL 20 MG TABLET PO SCH (10:17)
[2023-02-24] MEDS: NICOTINE 7 MG/24 HOURS TOPICAL PATCH TD SCH (10:18)
[2023-02-24] MEDS: MAG HYDROX/AL HYDROX/SIMETH 30 ML UNIT-DOSE CUP PO PRN (13:12)
[2023-02-24] MEDS: LISINOPRIL 10 MG TABLET PO SCH (17:29)
[2023-02-24] MEDS: traZODone HCL 100 MG TABLET (FP) PO SCH (21:26)
[2023-02-24] MEDS: THIAMINE HCL 100 MG TABLET (FP) PO SCH (21:26)
[2023-02-24] MEDS: MIRTAZAPINE 15 MG TABLET (FP) PO SCH (21:26)
[2023-02-24] MEDS: MELATONIN 5 MG TABLETS PO SCH (21:27)
[2023-02-25] MEDS: IBUPROFEN 600 MG TABLET (FP) PO PRN (04:51)
[2023-02-25] MEDS: methaDONE 40 MG, methaDONE 20 MG PO SCH (05:40)
[2023-02-25] MEDS: NICOTINE 10 MG CARTRIDGE (INHALER) IH PRN (05:42)
[2023-02-25] MEDS: amLODIPine BESYLATE 10 MG TABLET (FP) PO SCH (06:31)
[2023-02-25] MEDS: PRENATAL VITAMINS W/ FOLIC ACID TABLET (FP) PO SCH (10:02)
[2023-02-25] MEDS: LISINOPRIL 20 MG TABLET PO SCH (10:02)
[2023-02-25] MEDS: CEPHALEXIN MONOHYDRATE 500 MG CAPSULE (UD) PO SCH ×2 (10:02→21:24)
[2023-02-25] MEDS: NYSTATIN/TRIAMCINOLONE TOPICAL OINTMENT 15 GM TUBE TP SCH ×2 (10:03→21:25)
[2023-02-25] MEDS: NICOTINE 7 MG/24 HOURS TOPICAL PATCH TD SCH (10:04)
[2023-02-25] MEDS: LISINOPRIL 10 MG TABLET PO SCH (18:30)
[2023-02-25] MEDS: MELATONIN 5 MG TABLETS PO SCH (21:24)
[2023-02-25] MEDS: traZODone HCL 100 MG TABLET (FP) PO SCH (21:24)
[2023-02-25] MEDS: THIAMINE HCL 100 MG TABLET (FP) PO SCH (21:24)
[2023-02-25] MEDS: MIRTAZAPINE 15 MG TABLET (FP) PO SCH (21:24)
[2023-02-26] MEDS: methaDONE 40 MG, methaDONE 20 MG PO SCH (05:39)
[2023-02-26] MEDS: amLODIPine BESYLATE 10 MG TABLET (FP) PO SCH (06:56)
[2023-02-26] MEDS: PRENATAL VITAMINS W/ FOLIC ACID TABLET (FP) PO SCH (10:40)
[2023-02-26] MEDS: NICOTINE 7 MG/24 HOURS TOPICAL PATCH TD SCH (10:40)
[2023-02-26] MEDS: NYSTATIN/TRIAMCINOLONE TOPICAL OINTMENT 15 GM TUBE TP SCH ×2 (10:40→21:18)
[2023-02-26] MEDS: LISINOPRIL 20 MG TABLET PO SCH (10:42)
[2023-02-26] MEDS: DOCUSATE SODIUM 100 MG CAPSULE (FP) PO PRN (10:43)
[2023-02-26] MEDS: CEPHALEXIN MONOHYDRATE 500 MG CAPSULE (UD) PO SCH ×2 (10:43→21:19)
[2023-02-26] MEDS: LISINOPRIL 10 MG TABLET PO SCH (17:50)
[2023-02-26] MEDS: IBUPROFEN 600 MG TABLET (FP) PO PRN (17:50)
[2023-02-26] MEDS: hydrOXYzine PAMOATE 25 MG CAPSULE (FP) PO PRN (17:51)
[2023-02-26] MEDS: NICOTINE 10 MG CARTRIDGE (INHALER) IH PRN (19:47)
[2023-02-26] MEDS: cloNIDine HCL 0.1 MG TABLET PO PRN (20:44)
[2023-02-26] MEDS: THIAMINE HCL 100 MG TABLET (FP) PO SCH (21:16)
[2023-02-26] MEDS: traZODone HCL 100 MG TABLET (FP) PO SCH (21:16)
[2023-02-26] MEDS: MELATONIN 5 MG TABLETS PO SCH (21:17)
[2023-02-26] MEDS: MIRTAZAPINE 15 MG TABLET (FP) PO SCH (22:21)
[2023-02-27] MEDS: cloNIDine HCL 0.1 MG TABLET PO PRN (06:04)
[2023-02-27] MEDS: DOCUSATE SODIUM 100 MG CAPSULE (FP) PO PRN (06:04)
[2023-02-27] MEDS: methaDONE 40 MG, methaDONE 20 MG PO SCH (06:04)
[2023-02-27] MEDS: amLODIPine BESYLATE 10 MG TABLET (FP) PO SCH (06:04)
[2023-02-27] MEDS: hydrOXYzine PAMOATE 25 MG CAPSULE (FP) PO PRN (06:05)
[2023-02-27] MEDS: NICOTINE 10 MG CARTRIDGE (INHALER) IH PRN ×2 (06:06→19:28)
[2023-02-27] MEDS: PRENATAL VITAMINS W/ FOLIC ACID TABLET (FP) PO SCH (09:57)
[2023-02-27] MEDS: NYSTATIN/TRIAMCINOLONE TOPICAL OINTMENT 15 GM TUBE TP SCH ×2 (09:57→21:23)
[2023-02-27] MEDS: NICOTINE 7 MG/24 HOURS TOPICAL PATCH TD SCH (09:58)
[2023-02-27] MEDS: LISINOPRIL 20 MG TABLET PO SCH (09:58)
[2023-02-27] MEDS: CEPHALEXIN MONOHYDRATE 500 MG CAPSULE (UD) PO SCH ×2 (09:58→21:22)
[2023-02-27] MEDS: LISINOPRIL 10 MG TABLET PO SCH (18:13)
[2023-02-27] MEDS: IBUPROFEN 600 MG TABLET (FP) PO PRN (18:14)
[2023-02-27] MEDS: MIRTAZAPINE 15 MG TABLET (FP) PO SCH (21:22)
[2023-02-27] MEDS: THIAMINE HCL 100 MG TABLET (FP) PO SCH (21:22)
[2023-02-27] MEDS: MELATONIN 5 MG TABLETS PO SCH (21:22)
[2023-02-27] MEDS: traZODone HCL 100 MG TABLET (FP) PO SCH (21:22)
[2023-02-28] MEDS: IBUPROFEN 400 MG TABLET (FP) PO PRN (03:30)
[2023-02-28] MEDS: hydrOXYzine PAMOATE 25 MG CAPSULE (FP) PO PRN (06:17)
[2023-02-28] MEDS: cloNIDine HCL 0.1 MG TABLET PO PRN (06:17)
[2023-02-28] MEDS: DOCUSATE SODIUM 100 MG CAPSULE (FP) PO PRN ×2 (06:17→10:35)
[2023-02-28] MEDS: methaDONE 40 MG, methaDONE 20 MG PO SCH (06:17)
[2023-02-28] MEDS: amLODIPine BESYLATE 10 MG TABLET (FP) PO SCH (06:17)
[2023-02-28] MEDS: MAG HYDROX/AL HYDROX/SIMETH 30 ML UNIT-DOSE CUP PO PRN (06:20)
[2023-02-28] MEDS: NICOTINE 7 MG/24 HOURS TOPICAL PATCH TD SCH (10:34)
[2023-02-28] MEDS: LISINOPRIL 20 MG TABLET PO SCH (10:34)
[2023-02-28] MEDS: PRENATAL VITAMINS W/ FOLIC ACID TABLET (FP) PO SCH (10:35)
[2023-02-28] MEDS: NYSTATIN/TRIAMCINOLONE TOPICAL OINTMENT 15 GM TUBE TP SCH ×2 (10:36→21:13)
[2023-02-28] MEDS: CEPHALEXIN MONOHYDRATE 500 MG CAPSULE (UD) PO SCH ×2 (10:37→21:13)
[2023-02-28] MEDS: MAGNESIUM HYDROX 2400MG/30ML ORAL SUSPENSION 30 ML CUP PO PRN (10:38)
[2023-02-28] MEDS: IBUPROFEN 600 MG TABLET (FP) PO PRN (17:05)
[2023-02-28] MEDS: LISINOPRIL 10 MG TABLET PO SCH (17:06)
[2023-02-28] MEDS: POLYETHYLENE GLYCOL (HEALTHYLAX) 3350 17 GM PACKET PO PRN (18:27)
[2023-02-28] MEDS: NICOTINE 10 MG CARTRIDGE (INHALER) IH PRN (19:28)
[2023-02-28] MEDS: MELATONIN 5 MG TABLETS PO SCH (21:12)
[2023-02-28] MEDS: traZODone HCL 100 MG TABLET (FP) PO SCH (21:12)
[2023-02-28] MEDS: MIRTAZAPINE 15 MG TABLET (FP) PO SCH (21:12)
[2023-02-28] MEDS: THIAMINE HCL 100 MG TABLET (FP) PO SCH (21:12)
[2023-03-01] MEDS ORDERED: methaDONE HCL 10 MG TABLET PO SCH (06:00)
[2023-03-01] MEDS ORDERED: methaDONE 40 MG, methaDONE 20 MG PO SCH (06:00)
[2023-03-01] MEDS: cloNIDine HCL 0.1 MG TABLET PO PRN (06:09)
[2023-03-01] MEDS: DOCUSATE SODIUM 100 MG CAPSULE (FP) PO PRN (06:09)
[2023-03-01] MEDS: amLODIPine BESYLATE 10 MG TABLET (FP) PO SCH (06:09)
[2023-03-01] MEDS: hydrOXYzine PAMOATE 25 MG CAPSULE (FP) PO PRN (06:09)
[2023-03-01 07:00] VITALS: BP 153/85; PULSE 68; RESP 16; TEMP 97.8
[2023-03-01] MEDS: IBUPROFEN 600 MG TABLET (FP) PO PRN (08:55)
[2023-03-01] MEDS: NICOTINE 7 MG/24 HOURS TOPICAL PATCH TD SCH (09:07)
[2023-03-01] MEDS: PRENATAL VITAMINS W/ FOLIC ACID TABLET (FP) PO SCH (09:07)
[2023-03-01] MEDS: LISINOPRIL 20 MG TABLET PO SCH (09:07)
[2023-03-01] MEDS: CEPHALEXIN MONOHYDRATE 500 MG CAPSULE (UD) PO SCH (09:07)
== END 2023-03-01 09:14 | disposition home or self-care (01) | DRG 772 ==
LOC: YASAS 10:41 → Y3W 15:03
PROVIDERS: ADMIT Allergy & Immunology; ATTEND Psychiatry & Neurology Pain Medicine
PROC: HZ42ZZZ Group Counseling for Substance Abuse Treatment, Cognitive-Behavioral (ICD-10-PCS; principal; 2023-02-09)
DX: F11.20 Opioid dependence, uncomplicated (principal); F14.20 Cocaine dependence, uncomplicated; F10.20 Alcohol dependence, uncomplicated; F12.20 Cannabis dependence, uncomplicated; F17.210 Nicotine dependence, cigarettes, uncomplicated; F32.A Depression, unspecified; F41.9 Anxiety disorder, unspecified; B35.3 Tinea pedis; G47.00 Insomnia, unspecified; I10 Essential (primary) hypertension; J45.909 Unspecified asthma, uncomplicated; K59.00 Constipation, unspecified; L84 Corns and callosities; M54.50 Low back pain, unspecified; G89.29 Other chronic pain; R60.0 Localized edema; E66.9 Obesity, unspecified; Z68.35 Body mass index [BMI] 35.0-35.9, adult
CPT/HCPCS: 36415; 80053; 81003; 83036; 85027; 86780; 86803; 93005; 93010; C9803-CS; U0003; U0005